=== PATIENT | male | born 1960 | race Caucasian/White ===

== ENCOUNTER 2024-10-28 10:50 | Outpatient (CLI) | payer OTHER, SELFPAY ==
--- NOTE | ~2024-10-28 | XR_ITS ---
XR cervical spine 4-5V Ordering provider: Cass Ba, DC History: . Neck stiffness w numbess in the arms . Comparison: None. FINDINGS: VERTEBRAL BODIES: Normal height and alignment. No visible fracture or subluxation. The dens is intact . Degenerative changes of the spine. DISK SPACES: Slight narrowing of the disc C4-C5. Severe narrowing of the level of C5-C6 and C6-C7. Na rrowing of the foramina in the lower cervical area. Multilevel uncovertebral joint osteoarthritic ch anges. PARASPINOUS SOFT TISSUES: No prevertebral soft tissue swelling. IMPRESSION: No acute osseous abnormality cervical spine. Multilevel degenerative disc disease. Reviewed, dictated and finalized at location A. ASSESSMENT NURSE
== END 2024-10-28 10:51 | disposition home or self-care (01) ==
PROVIDERS: PCP Internal Medicine; Visit Provider Chiropractor
DX: R20.0 Anesthesia of skin (principal); M50.30 Other cervical disc degeneration, unspecified cervical region
CPT/HCPCS: 72050